=== PATIENT | female | born 1950 | race Caucasian/White ===

== ENCOUNTER → 2024-10-01 | Outpatient (CLI) | payer MEDICARE, OTHER, SELFPAY ==
--- NOTE | 2024-10-01 16:58 | RAD_ITS ---
EXAM: Lumbar spine 2 or three views CLINICAL HISTORY: Back pain COMPARISON: None available TECHNIQUE: Three views lumbosacral spine, AP, lateral and coned-down L5-S1 view FINDINGS: 5 [id number] lumbar vertebral type bodies identified. A mild S shaped thoracolumbar curvature, scoliosis is present curving to the left in the lumbar spine. No fracture or malalignment identified. Spondylosis/discogenic change L3-4 greater towards the right side of the disc space with severe disc space narrowing and apparent dxum-hd-eyfe contact with vacuum effect. Aortoiliac atherosclerotic calcification noted. RAD/Lumbar Spine 2 or 3 Views IMPRESSION: A mild S shaped thoracolumbar curvature, scoliosis is present curving to the le ft in the lumbar spine. No fracture or malalignment identified. Spondylosis/discogenic change L3-4 greater towards the right side of the disc s pace with severe disc space narrowing and apparent [id number]-bl-[id number] contact with vacuum effect. Reading Location: [id number]
== END | disposition home or self-care (01) ==
LOC: RAD 16:52
PROVIDERS: PCP Internal Medicine; Referring Provider Anesthesiology Pain Medicine; Visit Provider Anesthesiology Pain Medicine
DX: M54.50 Low back pain, unspecified (principal)
CPT/HCPCS: 72100

== ENCOUNTER → 2024-10-13 | Outpatient (CLI) | payer MEDICARE, OTHER, SELFPAY ==
--- NOTE | 2024-10-13 10:11 | MRI_ITS ---
EXAM: MRI lumbar spine without contrast. CLINICAL HISTORY: Back pain and radiculopathy. COMPARISON: Lumbar spine radiograph 10/01/2024 TECHNIQUE: Multiplanar multisequence MRI of the lumbar spine without contrast. FINDINGS: There is normal lumbar lordosis. The lumbar vertebral bodies are normal in height. Mild loss of disc space at L3-L4. Otherwise, disc spaces are maintained. No evidence of compression fracture. Alignment is normal. No listhesis. The bone marrow signal is unremarkable. There is no abnormal bone STIR signal. The included distal thoracic cord is normal in caliber and signal. The conus medullaris terminates at L1 level. There is no clumping of the nerve roots. L1/2: Small circumferential disc bulge and mild facet degenerative changes with flattening of the ventral thecal sac. No significant canal stenosis or neural foraminal narrowing.. L2/3: Small circumferential disc bulge and facet degenerative changes, with ligamentum flavum hypertrophy. Mild canal stenosis. Neural foramina are patent.. L3/4: Circumferential disc bulge, ligamentum flavum hypertrophy and facet degenerative changes with moderate canal stenosis. Mild right neural foraminal narrowing. Left neural foramen is patent.. L4/5: Circumferential disc bulge, facet degenerative changes and ligamentum flavum hypertrophy, with mild canal stenosis. Mild left neural foraminal narrowing. Right neural foramen is patent.. L5/S1: Small disc bulge, facet degenerative changes without significant canal stenosis. Neural foramina are patent.. The visualized prevertebral and paraspinal soft tissues are unremarkable. MRI/Spine Lumbar (Routine) IMPRESSION: No acute findings of the lumbar spine. Multilevel degenerative changes with up to mild canal stenosis and moderate shu ral foraminal narrowing most prominent at L3-L4. Reading Location: [id number]
== END | disposition home or self-care (01) ==
LOC: MRI 10:02
PROVIDERS: PCP Internal Medicine; Referring Provider Anesthesiology Pain Medicine; Visit Provider Anesthesiology Pain Medicine
DX: M54.16 Radiculopathy, lumbar region (principal)
CPT/HCPCS: 72148